=== PATIENT | female | born 1960 | race Caucasian/White ===

== ENCOUNTER → 2017-12-22 | Outpatient (CLI) | payer MEDICARE ==
[~2017-12-22] VITALS: Ht 167.6 cm; Wt 94.3 kg
[~2017-12-22] MED LIST: ACETAMINOPHEN-1 EAC1; ATENOLOL 50MG T50 M1 PO; ATIVAN1 MG PO; CARAFATE 1 GM TA1 G1 PO; LIPITOR80 MG PO; METFORMIN HCL500 MG PO; MINIPRESS2 MG PO; NOVOLOG100 UNIT/1 SUBQ; OMEPRAZOLE40 MG PO; PRINIVIL20 MG PO; PROZAC20 MG PO; TOUJEO SOL300 UNIT/1 SUBQ; TRAZODONE 150150 M1 PO; VERAPAMIL ER120 MG PO
[2017-12-22 09:21] VITALS: BP 195/63
[2017-12-22 09:27] LABS: ABSOLUTE BASOPHILS 0.1 thou/uL (0.0-0.2); ABSOLUTE EOSINOPHILS 0.2 thou/uL (0.0-0.7); ABSOLUTE LYMPHOCYTES 1.9 thou/uL (0.8-5.3); ABSOLUTE MONOCYTES 0.5 thou/uL (0.0-1.2); ABSOLUTE NEUTROPHILS 4.4 thou/uL (1.6-8.1); BASOPHILS 1.2 %; EOSINOPHILS 2.1 %; HEMATOCRIT 36.5 % (37.0-47.0); HEMOGLOBIN 12.2 gm/dL (12.0-15.0); LYMPHOCYTES 26.5 %; MCH 28.6 pg (26.0-34.0); MCHC 33.4 g/dL (28.0-37.0); MCV 85.8 fL (80.0-100.0); MPV 9.1 fl. (7.2-11.1); NUCLEATED RBCS 0 /100WBC; PLATELET COUNT* 202 thou/uL (150-400); POLYS 63.2 %; RBC 4.25 mil/uL (4.20-5.00); RDW-CV 15.5 % (10.5-14.5)
[2017-12-22 09:36] LABS: ANION GAP 9 mmol/L (7-16); BUN 23 mg/dL (7-18); CALCIUM 8.9 mg/dL (8.5-10.1); CHLORIDE 100 mmol/L (98-107); CO2 29 mmol/L (21-32); CREATININE 1.1 mg/dL (0.6-1.3); GLUCOSE 237 mg/dL (70-99); SODIUM 138 mmol/L (136-145)
[2017-12-22 09:37] LABS: APTT 24.5 Seconds (25.0-31.3); INR 1.1; PROTIME 10.4 Seconds (9.20-11.50)
[2017-12-22 09:40] LABS: ALBUMIN 3.2 g/dL (3.4-5.0); ALKALINE PHOSPHATASE 91 U/L (46-116); CHOLESTEROL 149 mg/dL (<200); HDL CHOLESTEROL 32 mg/dL (>40); LDL CHOLESTEROL 53 mg/dL (<100); SGOT 12 U/L (15-37); SGPT 20 U/L (30-65); TC:HDL 4.7 Ratio (Not establshd); TOTAL BILIRUBIN 0.3 mg/dL (<0.1-1.0); TOTAL PROTEIN 7.4 g/dL (6.4-8.2); TRIGLYCERIDE 323 mg/dL (<150); VLDL 65 mg/dL (<40)
[2017-12-22 09:42] LABS: SERUM ASSESSMENT Clear
--- NOTE | 2017-12-22 10:12 | EKG ---
[place] [address] ELECTROCARDIOGRAM REPORT Name: NORM WILL Room: [facility]#: [id number] Admission: 12/22/17 Attend Phys: Manuel Patten MD, F Discharge: Date of : 60 Report #: [id number] THIS REPORT FOR: //name// [facility] Test Date: 2017-12-22 Test Time: 09:43:29 Pat Name: NORM WILL Department: Room: Gender: F Firearms Specialist: : [id number] Requested By: Manuel Patten Order Number: [id number] Reading MD: Manuel Patten Measurements Intervals [place] Rate: 53 P: 24 CT: 130 QRS: 5 QRSD: 116 T: QT: 530 QTc: 498 Interpretive Statements Sinus bradycardia LVH with IVCD and secondary repol abnrm Borderline prolonged QT interval Compared to ECG 10/22/2010 08:40:03 Intraventricular conduction delay now present Left ventricular hypertrophy now present rate slowed Electronically Signed On 12-22-2017 10:12:13 CDT by Manuel Patten [email or web address] <ELECTRONICALLY SIGNED> By: Manuel Patten MD, [facility] 12/22/17 1012 0943 0943 Manuel Patten MD, [facility] /EPI
[2017-12-22 12:33] VITALS: BP 177/64
[2017-12-22 12:36] VITALS: BP 173/64
[2017-12-22 13:00] VITALS: BP 182/65
[2017-12-22 13:12] VITALS: BP 172/63
[2017-12-22 13:36] VITALS: BP 177/66
--- NOTE | 2017-12-22 15:45 | CARD ---
[address] [address] CARDIAC CATH REPORT Name: NORM WILL Room: [facility] Harman#: [id number] Admission: 12/22/17 Attend Phys: Manuel Patten MD, F Discharge: Date of : 60 Report #: [id number] THIS REPORT FOR: //name// APPROVED REPORT Study performed: 12/22/2017 11:10:25 Patient Details Patient Status: Out-Patient Room #: The patient is a 57 year-old female Event Personnel Manuel Patten Skin Installer, Chloe Naidu RN Vascular Manager, Bob Silverman (R) Monitor, Katie Corona Scradore Procedures Performed Left Heart Cath w/or w/o Coronaries Indication Positive stress test Risk Factors Arterial Hypertension, Hypercholesterolemia, Coronary Artery Disease, Diabetes Tobacco History () Previous Procedures/Diagnoses Previous PCI Admission/Lab Medications/Medications given during procedure Heparin Unfract. Procedure Narrative The patient was brought electively to the Cardiac Catheterization Laboratory and was prepped and draped in a sterile manner. The right wrist was infiltrated with 1% Lidocaine subcutaneous anesthesia. A Slender Glidesheath sheath was inserted into the Right Radial Artery. Coronary angiography was performed using coronary diagnostic catheters. The right coronary system was accessed and visualized with a Diagnostic JR4 catheter. The left coronary system was accessed and visualized with a Diagnostic JL 3.5 catheter. The left ventricle was accessed and visualized with a Diagnostic Angled Pig catheter. Left ventricular/Aortic Valve gradient assessed via catheter pullback. Left ventriculogram was performed in [place] projection. Closure device was deployed with a 6 Fr vascband. The patient tolerated the procedure well and there were [place] [address] CARDIAC CATH REPORT Name: NORM WILL Room: [facility]#: [id number] Admission: 12/22/17 Attend Phys: Manuel Patten MD, F Discharge: Date of : 60 Report #: [id number] procedure. There was no hematoma. Intraoperative Conscious Sedation Sedation start time: 11:47 Case end Time: 12:05 Versed 2 mg Fluoro Time: 2.1 minutes Dose: DAP 01749 cGycm2 847 mGy Contrast Type and Amount: Omnipaque 110 ml Diagnostic Cath Left Main 30% distal stenosis LAD stent noted in mid lad without restenosis Diagonal 1 60% mid stenosis Circumflex 0% stenosis OM1 occluded and fills by bridging collateral OM2 70% mid stenosis Right Coronary 90% proximal stenosis and stent in mid rca chronically occluded and distal rca fills by bidging collaterals and collaterals from the left coronary Left Ventriculography The left ventricular ejection fraction is estimated to be 40-45%. Left ventricular wall motion abnormalities are present. There is no mitral insufficiency. akinesis noted of the base of the inferior wall Hemodynamics The aortic pressure is 194/72 mmHg with a mean of 110 mmHg. The left ventricular pressure is 193/12 mmHg with a mean of mmHg. The left ventricular end diastolic pressure is 18 mmHg. There was no gradient across the aortic valve upon pullback. Pullback from the left ventricle to the aorta revealed no gradient across the aortic valve. Conclusion 1. no restenosis noted of stent in the mid lad 2. 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 12/22/17 1545 1545 1545Darobert Patten MD, FAC /INF
== END | disposition home or self-care (01) ==
LOC: M.CL 08:53
PROVIDERS: Internal Medicine Cardiovascular Disease
DX: I25.10 Atherosclerotic heart disease of native coronary artery without angina pectoris (principal); I25.82 Chronic total occlusion of coronary artery; I10 Essential (primary) hypertension; E11.9 Type 2 diabetes mellitus without complications; E78.00 Pure hypercholesterolemia, unspecified; G43.909 Migraine, unspecified, not intractable, without status migrainosus; F41.9 Anxiety disorder, unspecified; F17.210 Nicotine dependence, cigarettes, uncomplicated; Z90.49 Acquired absence of other specified parts of digestive tract; Z79.899 Other long term (current) drug therapy; Z79.4 Long term (current) use of insulin; Z98.890 Other specified postprocedural states; Z79.01 Long term (current) use of anticoagulants

== ENCOUNTER → 2018-01-09 | Outpatient (CLI) | payer MEDICARE | LOC: M.ULTRA 08:15 | DX: E04.9 Nontoxic goiter, unspecified (principal) ==

== ENCOUNTER → 2018-10-05 | Outpatient (CLI) | payer OTHER | LOC: M.ULTRA 09-28 13:40 | DX: Z12.31 Encounter for screening mammogram for malignant neoplasm of breast (principal); E04.1 Nontoxic single thyroid nodule; R59.9 Enlarged lymph nodes, unspecified ==

== ENCOUNTER → 2018-10-12 | Outpatient (CLI) | payer OTHER | LOC: M.ULTRA 13:12 | DX: N63.11 Unspecified lump in the right breast, upper outer quadrant (principal); J98.11 Atelectasis ==